=== PATIENT | female | born 1980 | race African-American/Black ===

== ENCOUNTER 2018-01-10 10:53 | Day surgery (SDC) | payer OTHER ==
[2018-01-09 14:03] VITALS: BMI 28.3
[2018-01-10 11:26] LABS: BASO % 0.4 % (0-2.0); EOS % 0.5 % (0-4.5); HEMATOCRIT 34.7 % (32.4-45.2); LYMPH % 33.8 % (8-40); MCHC 31.7 g/dl (32.0-36.0); MEAN CELL VOLUME 58.8 fl (80-96); MEAN PLT VOLUME 9.2 fl (7.5-11.1); MONO % 5.4 % (3.8-10.2); NEUT % 59.9 % (42.8-82.8); PLATELET COUNT 304 K/MM3 (134-434); RBC 5.91 M/mm3 (3.60-5.2); RDW 15.9 % (11.6-15.6); WHITE BLOOD COUNT 8.7 K/mm3 (4.0-10.0)
[2018-01-10 11:28] LABS: MCH 18.7 pg (25.7-33.7)
--- NOTE | 2018-01-10 11:48 | HP ---
Admitting History and Physical - Admission Chief Complaint: Missed History of Present Illness: 37 y/o female who was seen in my office for an ultrasound and was diagnosed with a missed . The patient was counseled on her options and elected to undergo a suction D&C procedure. No complaints today. History Source: Patient, Medical Record - Past Medical History Cardiovascular: No: HTN ...LMP: 11/05/17 ...: Yes (no heart rate, with missed ) Infectious Disease: No: AIDS, HIV, MRSA Psych: No: Anxiety, Bipolar, Depression - Past Surgical History Past Surgical History: Yes: None - Smoking History Smoking history: Never smoked Have you smoked in the past 12 months: No Aproximately how many cigarettes per day: 2 - Alcohol/Substance Use Hx Alcohol Use: Yes History of Substance Use: reports: None - Social History ADL: Independent History of Recent Travel: No Home Medications - Allergies Allergies/Adverse Reactions: Allergies Allergy/AdvReac Type Severity Reaction Status Date / Time No Known Allergies Allergy Verified 01/09/18 13:59 - Home Medications Home Medications: Ambulatory Orders Vit 108/Iron/Folic AC [ One Tablet] 1 each PO DAILY 01/09/18 Review of Systems - Review of Systems Constitutional: reports: No Symptoms Eyes: reports: No Symptoms HENT: reports: No Symptoms Neck: reports: No Symptoms Cardiovascular: reports: No Symptoms Respiratory: reports: No Symptoms Gastrointestinal: reports: No Symptoms Genitourinary: reports: No Symptoms Breasts: reports: No Symptoms Reported Musculoskeletal: reports: No Symptoms Integumentary: reports: No Symptoms Neurological: reports: No Symptoms Endocrine: reports: No Symptoms Hematology/Lymphatic: reports: No Symptoms Psychiatric: reports: No Symptoms Physical Examination Constitutional: Yes: Well Nourished, No Distress Eyes: Yes: Conjunctiva Clear HENT: Yes: Atraumatic Neck: Yes: WNL Cardiovascular: Yes: WNL Respiratory: Yes: Regular Gastrointestinal: Yes: WNL Extremities: Yes: WNL Edema: No Neurological: Yes: Alert, Oriented Psychiatric: Yes: Alert, Oriented Labs: CBC, BMP 01/10/18 11:05 Problem List - Problems (1) Missed Code(s): O02.1 - MISSED (2) Missed with demise before 20 completed weeks of gestation Code(s): O02.1 - MISSED Assessment/Plan missed at approx 6 weeks measured gestation for suction D&C NPO
[2018-01-10] MEDS ORDERED: ACETAMINOPHEN 325 MG TABLET (FP) PO PRN (11:52)
[2018-01-10] MEDS ORDERED: IBUPROFEN 800 MG/8 ML IJ IVPB PRN (11:52)
[2018-01-10] MEDS ORDERED: LACTATED RINGERS SOLUTION 1,000 ML IV SCH ×2 (12:00→14:15)
[2018-01-10 12:01] LABS: ANISOCYTOSIS 2+; PLATELET ESTIMATE ADEQUATE; TARGET CELLS 1+
[2018-01-10 12:11] LABS: ALBUMIN 3.6 g/dl (3.4-5.0); ALK PHOS 62 U/L (45-117); ANION GAP 11 MMOL/L (8-16); BILIRUBIN,TOTAL 0.5 mg/dL (0.2-1); BLOOD UREA NITROGEN 8 mg/dL (7-18); CALCIUM 8.6 mg/dL (8.5-10.1); CHLORIDE 107 mmol/L (98-107); CO2 23 mmol/L (21-32); CREATININE 0.5 mg/dL (0.55-1.3); GLUCOSE,RANDOM 94 mg/dL (74-106); SGOT/AST 19 U/L (15-37); SGPT/ALT 32 U/L (13-61); SODIUM 141 mmol/L (136-145); TOT PROT 6.9 g/dl (6.4-8.2)
[2018-01-10] MEDS ORDERED: PROPOFOL 20 ML ONE (12:49)
[2018-01-10] MEDS ORDERED: MIDAZOLAM HCL 2 MG/2 ML SINGLE DOSE VIAL ONE (12:49)
[2018-01-10] MEDS ORDERED: KETOROLAC TROMETHAMINE 30 MG/1 ML VIAL ONE (13:09)
[2018-01-10] MEDS ORDERED: PROMETHAZINE HCL 25 MG/1 ML VIAL IVPUSH PRN (14:03)
[2018-01-10] MEDS ORDERED: ONDANSETRON 4 MG/2 ML VIAL IVPUSH PRN (14:03)
[2018-01-10 14:26] VITALS: TEMP 97.8
--- NOTE | 2018-01-10 14:26 | OP ---
Operative Note - Note: Operative Date: 01/10/18 ([id number]) Pre-Operative Diagnosis: missed at 6 weeks Operation: suction D&C Post-Operative Diagnosis: Same as Pre-op Surgeon: Carleen Sunshine Anesthesiologist/ELECTRIC TRAIN DRIVER: Eddi Bird Anesthesia: MAC Specimens Removed: products of conception Estimated Blood Loss (mls): 10 Operative Report Dictated: Yes
[2018-01-10 18:04] VITALS: BP 116/74; PULSE 74
--- NOTE | 2018-01-10 19:15 | OP ---
DATE OF OPERATION: 01/10/2018 PREOPERATIVE DIAGNOSIS: Missed at approximately 6 weeks' gestation. POSTOPERATIVE DIAGNOSIS: Missed at approximately 6 weeks' gestation. PROCEDURE: Suction dilatation and curettage. SURGEON: Carleen Sunshine DO ANESTHESIA: MAC by Tylor Bird MD. ESTIMATED BLOOD LOSS: 10 mL SPECIMENS REMOVED: Products of conception. COUNTS: Sponge and instrument count correct. COMPLICATIONS: None. DISPOSITION: Stable to PACU. BRIEF HISTORY AND PROCEDURE: Patient is a 37-year-old, G9, P1 female who had been seen in the office with a positive test and found to have no heart rate on ultrasound on 2 separate occasions. The patient was diagnosed with a missed at this time. She was given her options and elected to undergo a suction D&C procedure. Consents for this procedure were signed on admission on January 10, 2018. She was then taken back to the operating room, placed in the dorsal lithotomy position, given MAC anesthesia. At this time, a hard timeout was performed. A speculum was placed inside the vagina. The anterior lip of the cervix was grasped with a tenaculum, and cervix was dilated to accommodate a size 7 suction curette which was advanced to the fundus. Several passes were completed with the suction curette to remove the tissue. One pass in all 4 cosby of the uterus with a sharp curette was completed until adequate uterine cry was noted, and 1 final pass of the suction curette was completed. All instruments were removed from the vagina. Specimen was sent fresh to pathology for permanent evaluation and chromosomal analysis. The patient tolerated the procedure well, recovering in stable condition in the PACU at the time of this dictation. CARLEEN SUNSHINE DO /[id number]
--- NOTE | 2018-01-12 15:21 | PATH ---
Surgical Pathology Report Patient Name: NEHA SAENZ Med. Rec. #: [id number] /Age/Gender: 1980 (Age: 37) / F Account: [id number] Location: [facility] SURGICAL Taken: 01/10/2018 Received: 01/10/2018 Reported: 01/12/2018 Physicians: Carleen Sunshine M.D. Specimen(s) Received PRODUCTS OF CONCEPTION Clinical History Missed Final Diagnosis PRODUCTS OF CONCEPTION: CHORIONIC VILLI AND DECIDUAL TISSUE PRESENT, CONSISTENT WITH PRODUCTS OF CONCEPTION. Electronically Signed Charanjit Sanchez M.D. Gross Description Received fresh labeled "products of conception," is a 5.0 x 4.3 x 0.5 cm aggregate of montejo-pink soft tissue fragments. Possible villous tissue is identified. No somatic tissue is identified. A pharmacy services representative portion is placed in RPMI solution and sent for genetic testing. The remainder of the specimen is entirely submitted in 4 cassettes. DL/01/10/2018 saudi/01/10/2018
== END 2018-01-10 16:30 | disposition home or self-care (01) ==
LOC: JOR 10:53 → JASU-SURG 10:53
PROVIDERS: ATTEND Obstetrics & Gynecology
PROC: 10D17ZZ Extraction of Products of Conception, Retained, Via Natural or Artificial Opening (ICD-10-PCS; principal; 2018-01-10 12:00)
DX: O02.1 Missed abortion (principal)
CPT/HCPCS: 36415; 80053; 84702; 85025; 86850; 86900; 86901; 88305-TC; 94760

== ENCOUNTER 2018-06-30 22:15 | Emergency (ER) | payer OTHER ==
[2018-06-30 22:27] VITALS: BP 125/73; PULSE 101; TEMP 98.3; BMI 27.4
--- NOTE | 2018-06-30 22:44 | PDOC ---
History of Present Illness - General Chief Complaint: Chest Pain Stated Complaint: CHEST PAIN/ Time Seen by Provider: 06/30/18 22:35 History Source: Patient - History of Present Illness Presenting Symptoms: Chest Pain Past History - Past Medical History Allergies/Adverse Reactions: Allergies Allergy/AdvReac Type Severity Reaction Status Date / Time No Known Allergies Allergy Verified 06/30/18 22:27 Home Medications: Ambulatory Orders Vit 108/Iron/Folic AC [ One Tablet] 1 each PO DAILY 01/09/18 Anemia: Yes Asthma: No Cancer: No Cardiac Disorders: No CVA: No COPD: No CHF: No Dementia: No Diabetes: No GI Disorders: No Disorders: No HTN: No Hypercholesterolemia: No Liver Disease: No Seizures: No Thyroid Disease: No - Surgical History Abdominal Surgery: No Appendectomy: Yes Cholecystectomy: No Orthopedic Surgery: No - Reproductive History (#): 7 Para: 1 Cervical CA: No Dysfunctional Uterine Bleeding: No Ectopic : No Endometrial CA: No Polycystic Ovaries: No Spontaneous : 5 - Immunization History Immunization Up to Date: Yes - Suicide/Smoking/Psychosocial Hx Smoking Status: Yes Smoking History: Never smoked Have you smoked in the past 12 months: No Number of Cigarettes Smoked Daily: 2 Information on smoking cessation initiated: No Hx Alcohol Use: No Drug/Substance Use Hx: No Substance Use Type: Alcohol Hx Substance Use Treatment: No Cardiac Specific PMH - Complaint Specific PMHX Pacemaker: No Review of Systems - Review of Systems Constitutional: No: Chills, Fever Respiratory: No: Cough, Shortness of Breath Cardiac (ROS): Yes: Chest Pain. No: Lightheadedness, Palpitations, Syncope ABD/GI: No: Nausea, Vomiting, Abdominal cramping : No: Burning, Dysuria, Discharge, Flank Pain, Hematuria *Physical Exam - Vital Signs Last Vital Signs Temp Pulse Resp BP Pulse Ox 98.3 F 101 H 16 125/73 100 06/30/18 22:25 06/30/18 22:25 06/30/18 22:25 06/30/18 22:25 06/30/18 22:25 - Physical Exam Comments: 07/01/18 00:16 Appears anxious General Appearance: Yes: Appropriately Dressed HEENT: positive: Normal Voice, Thrush Respiratory/Chest: positive: Lungs Clear, Normal Breath Sounds. negative: Respiratory Distress Cardiovascular: positive: Regular Rate, S1, S2 Gastrointestinal/Abdominal: positive: Soft. negative: Tender Musculoskeletal: negative: CVA Tenderness Integumentary: positive: Dry, Warm Neurologic: positive: Fully Oriented, Alert, Normal Mood/Affect Moderate Sedation - Procedure Monitoring Vital Signs: Procedure Monitoring Vital Signs Temperature 98.3 F 06/30/18 22:25 Pulse Rate 101 H 06/30/18 22:25 Respiratory Rate 16 06/30/18 22:25 Blood Pressure 125/73 06/30/18 22:25 O2 Sat by Pulse Oximetry (%) 100 06/30/18 22:25 ED Treatment Course - LABORATORY CBC & Chemistry Diagram: 06/30/18 23:19 06/30/18 23:19 - ADDITIONAL ORDERS Additional order review: Laboratory Results 06/30/18 06/30/18 06/30/18 23:20 23:19 23:19 D-Dimer 1035 H Sodium 135 L Potassium 3.6 Chloride 105 Carbon Dioxide 23 Anion Gap 6 L BUN 7 Creatinine 0.6 Creat Clearance w eGFR 111.29 Random Glucose 101 Calcium 9.0 Total Bilirubin 0.4 AST 18 ALT 22 Alkaline Phosphatase 67 Creatine Kinase 230 H Creatine Kinase Index 0.4 CK-MB (CK-2) 1.1 Troponin I < 0.02 Total Protein 7.7 Albumin 3.9 Urine Color Yellow Urine Appearance Clear Urine pH 5.5 Ur Specific Beaver 1.003 L Urine Protein Negative Urine Glucose (UA) Negative Urine Ketones Negative Urine Blood Negative Urine Nitrite Negative Urine Bilirubin Negative Urine Urobilinogen 0.2 Ur Leukocyte Esterase Negative 06/30/18 23:19 RBC 6.09 H MCV 59.3 L MCHC 32.8 RDW 15.5 MPV 9.2 Neutrophils % 62.2 Lymphocytes % 28.6 Monocytes % 7.6 Eosinophils % 0.7 Basophils % 0.9 - RADIOLOGY Radiology Studies Ordered: Category Date Time Status CHEST CTA [CT] Stat CT Scan 07/01/18 00:03 Taken Medical Decision Making - Medical Decision Making 06/30/18 22:42 38 yo F, , (spon AB x 8), ~ 5 weeks and here w/ CP. Pt states she has had non-radiating left-sided chest pains on and off 1 month, unable to describe, but seems to worsen with movement or if she talks too loud per patient. No hemoptysis, shortness of breath, palpitations, leg pain, swelling, diaphoresis, nausea, vomiting, fever or chills. Admits that she has been in to see her doctor multiple times for CP and at one point had an US of L breast done that was normal per pt. 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 Denies abd pain, vag bleed or dysuria at this time. See exam CP in Given duration of sxs, doubt PE and unlikely ACS or dissection S/p multiples neg w/u by PMD Tachy to 101 here and appears anxious, chest/lungs clear otherwise -Will review EKG done at triage -will discuss further w/u with ED attg 06/30/18 22:58 Per ED attending, will get labs including d-dimer. EKG reviewed w/ and shows NSR @100 BPM 07/01/18 00:08 Labs remarkable for d-dimer >1000. As per discussion with Dr. Claire, CTA offered to pt after lengthy conversation with patient regarding the risk of radiation to the fetus. I explained to mother that though the risk is considered low, that some risk is present such as developmental abnormalities and/or demise. I informed pt that though there is some risk, that we weigh this against the 20-30% risk of maternal mortality with untreated PE. Questions asked and answered and patient consents to having CTA done 07/01/18 01:45 CTA neg for PE or other acute ab/nl. Pt stable for discharge to continue f/u with her PMD and OB *DC/Admit/Observation/Transfer Diagnosis at time of Disposition: Chest pain Qualifiers: Chest pain type: unspecified Qualified Code(s): R07.9 - Chest pain, unspecified - Discharge Dispostion Disposition: HOME Condition at time of disposition: Good - Referrals Referrals: Zina Shi MD [Primary Care Provider] - - Patient Instructions Printed Discharge Instructions: DI for Chest Pain Additional Instructions: The cause of your chest pain is unclear as your EKG was normal and CTA of your lungs showed no clots or other lung abnormality Please continue to f/u with your PMD and OB - Post Discharge Activity
[2018-06-30 23:25] LABS: BASO % 0.9 % (0-2.0); EOS % 0.7 % (0-4.5); HEMATOCRIT 36.1 % (32.4-45.2); HEMOGLOBIN 11.8 GM/dL (10.7-15.3); LYMPH % 28.6 % (8-40); MCHC 32.8 g/dl (32.0-36.0); MEAN CELL VOLUME 59.3 fl (80-96); MEAN PLT VOLUME 9.2 fl (7.5-11.1); MONO % 7.6 % (3.8-10.2); NEUT % 62.2 % (42.8-82.8); PLATELET COUNT 278 K/MM3 (134-434); RBC 6.09 M/mm3 (3.60-5.2); RDW 15.5 % (11.6-15.6)
[2018-06-30 23:26] LABS: MCH 19.5 pg (25.7-33.7)
[2018-06-30 23:27] LABS: PH,URINE 5.5 (5.0-8.0); URINE APPEARANCE CLEAR; URINE BILIRUBIN NEGATIVE (<2.0 mg/dL); URINE COLOR YELLOW; URINE GLUCOSE (UA) NEGATIVE (NEGATIVE); URINE KETONE NEGATIVE (NEGATIVE); URINE LEUK ESTERASE NEGATIVE (NEGATIVE); URINE NITRITE NEGATIVE (NEGATIVE); URINE PROTEIN NEGATIVE (NEGATIVE); URINE UROBILINOGEN 0.2 mg/dL (0.2-1.0)
[2018-06-30 23:42] LABS: ANISOCYTOSIS 3+; MACROCYTOSIS 1+
[2018-06-30 23:43] LABS: PLATELET ESTIMATE ADEQUATE
[2018-06-30 23:51] LABS: ALBUMIN 3.9 g/dl (3.4-5.0); ALK PHOS 67 U/L (45-117); ANION GAP 6 MMOL/L (8-16); BILIRUBIN,TOTAL 0.4 mg/dL (0.2-1); BLOOD UREA NITROGEN 7 mg/dL (7-18); CHLORIDE 105 mmol/L (98-107); CO2 23 mmol/L (21-32); CREATININE 0.6 mg/dL (0.55-1.3); GLUCOSE,RANDOM 101 mg/dL (74-106); POTASSIUM 3.6 mmol/L (3.5-5.1); SGOT/AST 18 U/L (15-37); SGPT/ALT 22 U/L (13-61); SODIUM 135 mmol/L (136-145); TOT PROT 7.7 g/dl (6.4-8.2)
--- NOTE | 2018-07-03 22:03 | EKG ---
Test Reason : Blood Pressure : / mmHG Vent. Rate : 100 BPM Atrial Rate : 100 BPM P-R Int : 148 ms QRS Dur : 080 ms QT Int : 348 ms P-R-T Axes : 074 058 051 degrees QTc Int : 448 ms NORMAL SINUS RHYTHM NORMAL ECG NO PREVIOUS ECGS AVAILABLE Confirmed by MD KJ, SCARLETT ([id number]) on 07/03/2018 10:03:05 PM Referred By: Confirmed By:SCARLETT UNDERWOOD MD
== END 2018-07-01 01:59 | disposition home or self-care (01) ==
LOC: JER 22:15
DX: O26.891 Other specified pregnancy related conditions, first trimester (principal); R07.9 Chest pain, unspecified; Z3A.01 Less than 8 weeks gestation of pregnancy
CPT/HCPCS: 36415; 71275-TC; 80053; 81003; 82550; 82553; 84484; 85025; 85379; 93005; 93010; 99281-25

== ENCOUNTER 2018-11-08 15:48 | Emergency (ER) | payer SELFPAY ==
[2018-11-08 15:54] VITALS: BMI 30.5
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
[2018-11-08 18:35] VITALS: BP 113/69; PULSE 79; TEMP 98.1
== END 2018-11-08 20:45 | disposition home or self-care (01) ==
LOC: JER 15:48
CPT/HCPCS: 76801-TC; 99281-25

== ENCOUNTER 2019-02-13 00:10 | Inpatient (IN) | payer OTHER ==
[2019-02-13 01:05] LABS: BASO % 0.3 % (0-2.0); EOS % 0.3 % (0-4.5); HEMATOCRIT 32.8 % (32.4-45.2); HEMOGLOBIN 10.3 GM/dL (10.7-15.3); LYMPH % 19.4 % (8-40); MCHC 31.5 g/dl (32.0-36.0); MEAN CELL VOLUME 61.9 fl (80-96); MEAN PLT VOLUME 9.1 fl (7.5-11.1); MONO % 9.3 % (3.8-10.2); NEUT % 70.7 % (42.8-82.8); PLATELET COUNT 214 K/MM3 (134-434); RBC 5.29 M/mm3 (3.60-5.2); RDW 17.1 % (11.6-15.6)
[2019-02-13 01:18] LABS: MCH 19.5 pg (25.7-33.7)
[2019-02-13 01:22] VITALS: BMI 31.7
[2019-02-13 01:22] LABS: BLOOD UREA NITROGEN 6.7 mg/dL (7-18); CALCIUM 8.4 mg/dL (8.5-10.1); CREATININE 0.7 mg/dL (0.55-1.3)
[2019-02-13 01:26] LABS: INR 0.92 (0.83-1.09); PROTHROMBIN TIME (PATIENT) 10.9 SEC (9.7-13.0)
[2019-02-13] MEDS ORDERED: PROMETHAZINE HCL 25 MG/1 ML VIAL ONE (01:26)
[2019-02-13] MEDS ORDERED: BUTORPHANOL TARTRATE 1 MG/ML VIAL ONE ×2 (01:26)
[2019-02-13 01:28] LABS: ACTIVATED PTT 28.5 SECONDS (25.2-36.5)
[2019-02-13] MEDS ORDERED: PROMETHAZINE HCL 25 MG/1 ML VIAL IVPB ONE (01:30)
[2019-02-13] MEDS ORDERED: DEXTROSE 5%-LACTATED RINGERS 1,000 ML IV SCH (01:30)
[2019-02-13] MEDS ORDERED: BUTORPHANOL TARTRATE 1 MG/ML VIAL IVPB ONE ×2 (01:30)
[2019-02-13] MEDS ORDERED: AMPICILLIN SODIUM 2 GM VIAL ONE (01:36)
[2019-02-13] MEDS ORDERED: AMPICILLIN - 2 GM in SODIUM CHLORIDE 100 ML IVPB STA (02:08)
[2019-02-13] MEDS ORDERED: ELECTROLYTE-148 SOLN 500 ML IV ONE (03:00)
[2019-02-13] MEDS ORDERED: FENTANYL/BUPIVACAINE/NS/PF - PCEA - 50 ML DISP.SYRIN EP ONE ×2 (03:25→08:54)
[2019-02-13] MEDS ORDERED: LIDO 2%/EPI 1:200000 PRESRVFRE (20 ML SDVIAL) ONE (03:40)
[2019-02-13] MEDS ORDERED: ELECTROLYTE-148 SOLN 1,000 ML IV SCH ×2 (04:00→06:45)
[2019-02-13] MEDS: FENTANYL/BUPIVACAINE/NS/PF - PCEA - 50 ML DISP.SYRIN EP SCH ×2 (05:05→09:01)
[2019-02-13] MEDS ORDERED: NALOXONE HCL 0.4 MG/ML VIAL IVPUSH PRN (05:16)
[2019-02-13 05:44] LABS: PLATELET ESTIMATE ADEQUATE
[2019-02-13] MEDS: AMPICILLIN - 1 GM in SODIUM CHLORIDE 100 ML IVPB SCH ×2 (06:05→11:58)
[2019-02-13] MEDS ORDERED: AMPICILLIN SODIUM 1 GM VIAL ONE (06:08)
--- NOTE | 2019-02-13 06:50 | HP ---
Past Medical History - Primary Care Physician PCP:: Umm Carver - Admission Chief Complaint: Labor History of Present Illness: 39 go G 11P1 EDC 02/16/19 EGA 39.5 week admitted in labor +GBS no rom no bleeding no pain AMA Spont AB x 9 History Source: Patient Limitations to Obtaining History: No Limitations - Past Medical History ...: 11 ...Para: 1 ...Term: 1 ...: 0 ...Spon : 9 ...EDC by Sono: 02/15/19 - Past Surgical History Past Surgical History: Yes: Appendectomy Hx Myomectomy: No Hx Transabdominal Cerclage: No Additional Surgical History: DC. Breast implants - Smoking History Smoking history: Never smoked Have you smoked in the past 12 months: No Aproximately how many cigarettes per day: 2 - Alcohol/Substance Use Hx Alcohol Use: No History of Substance Use: reports: None - Social History ADL: Independent History of Recent Travel: No Home Medications - Allergies Allergies/Adverse Reactions: Allergies Allergy/AdvReac Type Severity Reaction Status Date / Time No Known Allergies Allergy Verified 06/30/18 22:27 - Home Medications Home Medications: Ambulatory Orders Mv-Mn/Iron/FA/Herbal/Digestive [ One Tablet] 1 each PO DAILY 01/09/18 Review of Systems - Review of Systems Constitutional: reports: No Symptoms Eyes: reports: No Symptoms HENT: reports: No Symptoms Neck: reports: No Symptoms Cardiovascular: reports: No Symptoms Respiratory: reports: No Symptoms Gastrointestinal: reports: Abdominal Pain Genitourinary: reports: No Symptoms Breasts: reports: No Symptoms Reported Musculoskeletal: reports: No Symptoms Integumentary: reports: No Symptoms Neurological: reports: No Symptoms Endocrine: reports: No Symptoms Hematology/Lymphatic: reports: No Symptoms Psychiatric: reports: No Symptoms Physical Exam - Maternity Vital Signs: Vital Signs Temperature 98.2 F 02/13/19 06:00 Pulse Rate 89 02/13/19 06:30 Respiratory Rate 20 02/13/19 06:30 Blood Pressure 111/62 02/13/19 06:30 O2 Sat by Pulse Oximetry (%) 100 02/13/19 06:30 Constitutional: Yes: Well Nourished, No Distress - Abdominal Exam/OB Number of Fetuses: Single Presentation: Vertex Contractions: Yes Monitor Mode: External Heart Rate Location: [facility] Category: I Decelerations: None - Vaginal Exam/OB Dilatation (cm): 3 Effacement (%): 70 Amniotic Membrane Status: Intact Presentation: Vertex/Position Station: -1 - Physical Exam Musculoskeletal: Yes: WNL Extremities: Yes: WNL - Labs Lab Results: CBC, BMP 02/13/19 00:40 02/13/19 00:40 Hemorrhage Risk Assessment - Risk Factors Risk Score: 0 Risk Level: Low Risk Problem List - Problems (1) Labor established Code(s): UDB0272 - (2) 39 weeks gestation of Code(s): Z3A.39 - 39 WEEKS GESTATION OF Assessment/Plan IUP at 39.5 week GBS positive AMA Plan Admit to LD
--- NOTE | 2019-02-13 07:03 | PN ---
Ante-Partal Exam - Subjective Subjective: Pt sp epidural and bradycardia x 6 min after epidural Pt sp rom @ 5 am Vital Signs: Vital Signs Temperature 98.2 F 02/13/19 06:00 Pulse Rate 93 H 02/13/19 06:45 Respiratory Rate 20 02/13/19 06:45 Blood Pressure 109/59 L 02/13/19 06:45 O2 Sat by Pulse Oximetry (%) 100 02/13/19 06:45 Bleeding: No Headache: No Visual changes: No Right upper quadrant pain: No - Contractions Contractions: Yes Regularity: Regular Intensity: Mild/Mod Monitor Mode: External - Exam during Labor Variability: Minimal Heart Rate Location: [facility] Category: I Monitor Decelerations: None Exam: Vaginal (internal lead was placed by laborist after bradycardia) Dilatation (cm): 6 Effacement (%): 80 Amniotic Membrane Status: Ruptured Amniotic Fluid: Clear Presentation: Vertex Station: -1 - Intrapartum Hemorrhage Risk Medium Risk Factors: None Risk Score: 0 Risk Level: Low Risk
--- NOTE | 2019-02-13 07:41 | PN ---
Ante-Partal Exam - Subjective Subjective: Pt feeling pressure Vital Signs: Vital Signs Temperature 98.1 F 02/13/19 07:00 Pulse Rate 93 H 02/13/19 06:45 Respiratory Rate 20 02/13/19 06:45 Blood Pressure 109/59 L 02/13/19 06:45 O2 Sat by Pulse Oximetry (%) 100 02/13/19 06:45 Bleeding: Yes (bloody show) Headache: No Visual changes: No Right upper quadrant pain: No - Contractions Contractions: Yes Regularity: Regular Intensity: Mild/Mod Monitor Mode: External - Exam during Labor Heart Rate: 150 Variability: Moderate Category: I Dilatation (cm): 7-8 Amniotic Membrane Status: Ruptured Presentation: Vertex Station: -1 - Intrapartum Hemorrhage Risk High Risk Factors: None Risk Score: 0 Risk Level: Low Risk - Assessment/Plan Assessment/Plan: active labor Cat 1 7-8 cm GBS positive plan continue labor management
[2019-02-13] MEDS ORDERED: BUPIVACAINE HCL/PF 2.5 MG/ML - 30 ML VIAL IJ ONE (08:14)
[2019-02-13] MEDS ORDERED: LIDOCAINE HCL 1% PRESERVATIVE FREE - 30ML VIAL ONE (08:15)
[2019-02-13] MEDS ORDERED: OXYTOCIN 20 UNITS in 0.9% NS 20 UNIT/1,000 ML INFUS.BAG IV ONE (09:53)
--- NOTE | 2019-02-13 09:57 | PN ---
Delivery - Delivery Vaginal Delivery: No Problems (OP position) Type of Anesthesia: Epidural Episiotomy/Laceration: None EBL (cc): 250 Delivery, Single - [place] Feeding Plan Initial Plan: Elected not to breastfeed exclusively throughout hospitalization
[2019-02-13] MEDS ORDERED: WITCH HAZEL 50% (TUCKS) 40 PAD/JAR PAD TP PRN (10:02)
[2019-02-13] MEDS ORDERED: BENZOCAINE 28 GM HEMORRHOIDAL OINTMENT PR PRN (10:02)
[2019-02-13] MEDS ORDERED: BISACODYL 10 MG SUPP.RECT PR PRN (10:02)
[2019-02-13] MEDS ORDERED: METHYLERGONOVINE MALEATE 0.2 MG/1 ML AMP IM PRN (10:02)
[2019-02-13] MEDS ORDERED: BENZOCAINE 20% 57 GM BOTTLE TP PRN (10:02)
[2019-02-13] MEDS ORDERED: OXYTOCIN 20 UNITS in 0.9% NS 20 UNIT/1,000 ML INFUS.BAG IV SCH (10:15)
[2019-02-13] MEDS: IBUPROFEN 600 MG TABLET (FP) PO PRN ×2 (12:23→19:27)
[2019-02-13] MEDS: ACETAMINOPHEN 325 MG TABLET (FP) PO PRN ×2 (12:23→19:27)
[2019-02-14] MEDS: ACETAMINOPHEN 325 MG TABLET (FP) PO PRN ×4 (04:06→22:37)
[2019-02-14] MEDS: IBUPROFEN 600 MG TABLET (FP) PO PRN ×4 (04:07→22:36)
--- NOTE | 2019-02-14 06:15 | PN ---
Post Note - Post Date of Delivery: 02/13/19 Post Day: 1 Vital Signs: Vital Signs - 24 hr 02/13/19 02/13/19 02/13/19 06:30 06:45 07:00 Temperature 98.1 F Pulse Rate 89 93 H 96 H Respiratory 20 20 20 Rate Blood Pressure 111/62 109/59 L 113/60 O2 Sat by Pulse 100 100 Oximetry (%) 02/13/19 02/13/19 02/13/19 07:15 07:30 07:45 Temperature Pulse Rate 87 88 91 H Respiratory 20 20 20 Rate Blood Pressure 116/70 119/70 114/73 O2 Sat by Pulse 100 100 100 Oximetry (%) 02/13/19 02/13/19 02/13/19 08:00 08:15 08:30 Temperature 98.2 F Pulse Rate 92 H 95 H 97 H Respiratory 20 20 20 Rate Blood Pressure 126/72 123/76 113/67 O2 Sat by Pulse 100 97 100 Oximetry (%) 02/13/19 02/13/19 02/13/19 08:45 09:00 09:01 Temperature Pulse Rate 104 H 100 H 20 L Respiratory 20 20 Rate Blood Pressure 127/65 127/65 O2 Sat by Pulse 100 100 Oximetry (%) 02/13/19 02/13/19 02/13/19 09:15 09:30 09:45 Temperature Pulse Rate 114 H 115 H 118 H Respiratory 22 H 22 H 22 H Rate Blood Pressure 126/75 133/74 125/68 O2 Sat by Pulse 100 Oximetry (%) 02/13/19 02/13/19 02/13/19 10:00 10:15 10:30 Temperature 97.3 F L Pulse Rate 102 H 99 H 89 Respiratory 20 20 20 Rate Blood Pressure 121/73 110/87 125/74 O2 Sat by Pulse 100 100 100 Oximetry (%) 02/13/19 02/13/19 02/13/19 10:45 11:00 12:00 Temperature 98.1 F Pulse Rate 91 H 86 81 Respiratory 20 20 20 Rate Blood Pressure 113/57 L 134/84 127/73 O2 Sat by Pulse 100 Oximetry (%) 02/13/19 02/13/19 02/13/19 15:31 20:39 21:12 Temperature 98.3 F 98 F Pulse Rate 101 H 85 Respiratory 18 18 16 Rate Blood Pressure 109/63 105/51 L O2 Sat by Pulse 100 Oximetry (%) 02/14/19 02/14/19 01:32 05:31 Temperature 98 F 98.3 F Pulse Rate 78 83 Respiratory 18 16 Rate Blood Pressure 111/60 115/65 O2 Sat by Pulse Oximetry (%) Labs: Laboratory Results - last 24 hr 02/13/19 02/13/19 02/13/19 00:40 09:55 09:55 Cord Blood pH 7.28 7.25 Cord Blood PCO2 49.6 41.9 Cord Blood PO2 < 49 H < 49 H Cord Blood HCO3 22.4 No Result Required. Cord Base Excess -4.9 L No Result Required. RPR Titer Nonreactive - Subjective Subjective: No Complaints - Objective Afebrile: Yes Breast: Not engorged Abdomen: Non-tender Uterus: Fundus firm Vagina: Scant lochia Extremities: Non-tender - Assessment/Plan (1) Labor established Assessment: S/P Normal Plan: Routine Care
--- NOTE | 2019-02-14 06:15 | PROC ---
Obstetrical Vaccum Device - Doc. Following Use of Vaccum Device Indications for use: Bradycardia Risks and Benefits Explained: Yes Consent on Chart: Yes Station: 2 Position: OP Caput: No Proper placement of cup confirmed: Yes Number of pulls: 1 Number of pop-offs: 0 Reduction of pressure between contractions: Yes Appearance of head on delivery: Normal Metal Stud Framer present during vacuum extraction: No Metal Stud Framer & nursery staff notified of vacuum extraction: Yes
[2019-02-14 08:41] LABS: BASO % 0.4 % (0-2.0); EOS % 0.3 % (0-4.5); HEMATOCRIT 31.3 % (32.4-45.2); HEMOGLOBIN 9.9 GM/dL (10.7-15.3); LYMPH % 16.7 % (8-40); MCHC 31.5 g/dl (32.0-36.0); MEAN CELL VOLUME 61.9 fl (80-96); MEAN PLT VOLUME 9.4 fl (7.5-11.1); MONO % 9.1 % (3.8-10.2); NEUT % 73.5 % (42.8-82.8); PLATELET COUNT 210 K/MM3 (134-434); RBC 5.06 M/mm3 (3.60-5.2); RDW 16.9 % (11.6-15.6); WHITE BLOOD COUNT 17.1 K/mm3 (4.0-10.0)
[2019-02-14 08:46] LABS: MCH 19.5 pg (25.7-33.7)
[2019-02-15] MEDS: IBUPROFEN 600 MG TABLET (FP) PO PRN ×3 (03:07→11:46)
[2019-02-15] MEDS: ACETAMINOPHEN 325 MG TABLET (FP) PO PRN ×4 (03:07→19:04)
[2019-02-15 11:03] LABS: BASO % 0.3 % (0-2.0); EOS % 1.3 % (0-4.5); HEMATOCRIT 33.6 % (32.4-45.2); HEMOGLOBIN 10.4 GM/dL (10.7-15.3); MCHC 30.9 g/dl (32.0-36.0); MEAN CELL VOLUME 62.6 fl (80-96); MEAN PLT VOLUME 8.8 fl (7.5-11.1); MONO % 7.2 % (3.8-10.2); NEUT % 72.2 % (42.8-82.8); PLATELET COUNT 206 K/MM3 (134-434); RBC 5.36 M/mm3 (3.60-5.2); RDW 17.5 % (11.6-15.6)
[2019-02-15 11:12] LABS: MCH 19.3 pg (25.7-33.7)
[2019-02-15] MEDS ORDERED: ACETAMINOPHEN 325 MG TABLET (FP) PO ONE ×2 (12:15)
[2019-02-15] MEDS ORDERED: oxyCODONE HCL 5 MG TABLET PO ONE ×2 (12:15)
[2019-02-15] MEDS ORDERED: ACETAMINOPHEN 325 MG TABLET (FP) PO PRN (18:28)
[2019-02-15] MEDS ORDERED: oxyCODONE HCL 5 MG TABLET PO PRN (18:28)
[2019-02-15] MEDS: oxyCODONE HCL 5 MG TABLET PO PRN (19:03)
--- NOTE | 2019-02-15 20:36 | CONSULT ---
Past Medical History, Laborist - Primary Care Physician PCP:: bony - Admission Chief Complaint: Called to pt. because of c/o LLQ pain. Happenned suddenly few hours ago, responded to Percocet. It is returning now at the level of 5-6. NVD of a second baby on 02.13.2019. Normal bowel function, normal voiding,. VSS. Labs WNL. History of Present Illness: acute llq pain History Source: Patient Limitations to Obtaining History: No Limitations - Past Medical History UPKEEP MECHANIC: Denies/None Cardio/Vascular: Denies/None Pulmonary: Denies/None Gastrointestinal: Denies/None Hepatobiliary: Denies/None Renal/: Denies/None Reproductive: Denies/None ...: 11 ...Para: 1 ...Term: 1 ...: 0 ...Spon : 9 ...EDC by Lee: 02/15/19 Heme/Onc: Denies/None Infectious Disease: Denies/None Psych: Denies/None Musculoskeletal: Denies/None Rheumatology: Denies/None ENT: Denies/None Endocrine: Denies/None Dermatology: Denies/None - Past Surgical History Past Surgical History: Yes: Appendectomy Additional Surgical History: DC. Breast implants - Smoking History Smoking history: Never smoked Have you smoked in the past 12 months: No Aproximately how many cigarettes per day: 2 - Alcohol/Substance Use Hx Alcohol Use: No History of Substance Use: reports: None - Social History ADL: Independent History of Recent Travel: No Physical Exam - Maternity Vital Signs: Vital Signs Temperature 98.4 F 02/15/19 10:00 Pulse Rate 64 02/15/19 10:00 Respiratory Rate 18 02/15/19 10:00 Blood Pressure 112/62 02/15/19 10:00 O2 Sat by Pulse Oximetry (%) 100 02/13/19 20:39 Constitutional: Yes: Well Nourished HENT: Yes: WNL Neck: Yes: WNL - Labs Lab Results: CBC, BMP 02/15/19 10:45 02/13/19 00:40 Problem List - Problems (1) pain Code(s): O90.89 - OTH COMPLICATIONS OF THE PUERPERIUM, NEC; R52 - PAIN, UNSPECIFIED (2) pain Code(s): O90.89 - OTH COMPLICATIONS OF THE PUERPERIUM, NEC; R52 - PAIN, UNSPECIFIED (3) pain Code(s): O90.89 - OTH COMPLICATIONS OF THE PUERPERIUM, NEC; R52 - PAIN, UNSPECIFIED Assessment/Plan Pt complained of severe left lower quadrant pain on the second PP day. She was ok before. Normal bowel and bladder funcyion. VSS PE: Abdomen soft, sl. distended. Uterus well contracted,non-tender. LLQ tenderness, mild guarding and rebound Pelvic WNL, no hematoma, mass, etc.\ P;an: Observe overnight, Percocet PRN, alt. with Ibuprofen. CT of abd./pelvis.
--- NOTE | 2019-02-15 22:06 | PN ---
Progress Note (short form) - Note Progress Note: CT scan is neg. Pt. feels better. Reassured. Problem List - Problems (1) pain Code(s): O90.89 - OTH COMPLICATIONS OF THE PUERPERIUM, NEC; R52 - PAIN, UNSPECIFIED (2) pain Code(s): O90.89 - OTH COMPLICATIONS OF THE PUERPERIUM, NEC; R52 - PAIN, UNSPECIFIED (3) pain Code(s): O90.89 - OTH COMPLICATIONS OF THE PUERPERIUM, NEC; R52 - PAIN, UNSPECIFIED
[2019-02-16] MEDS: oxyCODONE HCL 5 MG TABLET PO PRN (00:18)
[2019-02-16] MEDS: ACETAMINOPHEN 325 MG TABLET (FP) PO PRN (00:19)
--- NOTE | 2019-02-16 07:04 | PN ---
Progress Note (short form) - Note Progress Note: Pt. had a good night. Feels great. Discharge. Problem List - Problems (1) pain Code(s): O90.89 - OTH COMPLICATIONS OF THE PUERPERIUM, NEC; R52 - PAIN, UNSPECIFIED (2) pain Code(s): O90.89 - OTH COMPLICATIONS OF THE PUERPERIUM, NEC; R52 - PAIN, UNSPECIFIED (3) pain Code(s): O90.89 - OTH COMPLICATIONS OF THE PUERPERIUM, NEC; R52 - PAIN, UNSPECIFIED
[2019-02-16 10:32] VITALS: BP 123/76; PULSE 77; TEMP 98.5
--- NOTE | 2019-02-25 21:14 | DS ---
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 Signs: Vital Signs Temperature 98.5 F 02/16/19 10:00 Pulse Rate 77 02/16/19 10:00 Respiratory Rate 20 02/16/19 10:00 Blood Pressure 123/76 02/16/19 10:00 O2 Sat by Pulse Oximetry (%) 100 02/13/19 20:39 Constitutional: Yes: Well Nourished, No Distress Gastrointestinal: Yes: WNL, Soft ....Post : Yes: Uterus firm, Uterus non-tender Breast(s): Yes: WNL Neurological: Yes: WNL, Alert, Oriented Labs: CBC, BMP 02/15/19 10:45 02/13/19 00:40 Delivery - Delivery Vaginal Delivery: No Problems (OP position) Type of Anesthesia: Epidural Episiotomy/Laceration: None EBL (cc): 350 Delivery, Single - Stages of Labor Date 1st Stage Initiatied: 02/12/19 Time 1st Stage Initiated: 21:00 Date 2nd Stage Initiated: 02/13/19 Time 2nd Stage Initiated: 09:15 Date of Delivery: 02/13/19 Time of Delivery: 09:50 Time Placenta Delivered: 09:55 Placenta: Yes: Spontaneous - 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: No Gender: Male Weight: 6 lb 11 oz Position: OP Total Hours ROM (Hrs/Mins): 4/20 - 1 Minute Total Score: 9 5 Minutes Total Score: 10 - [place] Feeding Plan Initial Plan: Elected not to breastfeed exclusively throughout hospitalization Discharge Summary Problems reviewed: Yes Reason For Visit: LABOR INDUCTION Procedures: Principal: Vacuum Delivery Hospital Course: Unremarkable Condition: Stable - Instructions Disposition: HOME - Home Medications Comprehensive Discharge Medication List: Ambulatory Orders Mv-Mn/Iron/FA/Herbal/Digestive [ One Tablet] 1 each PO DAILY 01/09/18 Ibuprofen [Motrin -] 600 mg PO QID #28 tablet 02/13/19
== END 2019-02-16 11:00 | disposition home or self-care (01) | DRG 560 ==
LOC: JLDR 00:10 → J3W 11:30
PROVIDERS: ADMIT Obstetrics & Gynecology; ATTEND Obstetrics & Gynecology
PROC: 10E0XZZ Delivery of Products of Conception, External Approach (ICD-10-PCS; principal; 2019-02-13)
PROC: 10D07Z6 Extraction of Products of Conception, Vacuum, Via Natural or Artificial Opening (ICD-10-PCS; 2019-02-13)
DX: O77.9 Labor and delivery complicated by fetal stress, unspecified (principal); O66.5 Attempted application of vacuum extractor and forceps; O90.89 Other complications of the puerperium, not elsewhere classified; R10.32 Left lower quadrant pain; Z3A.39 39 weeks gestation of pregnancy; Z37.0 Single live birth
CPT/HCPCS: 36415; 36600; 59409; 74176-TC; 80048; 82803; 85025; 85610; 85730; 86593; 86850; 86900; 86901; 87389

== ENCOUNTER 2024-11-05 10:50 | Emergency (ER) | payer OTHER ==
[2024-11-05 11:51] LABS: EPI CELLS >36 /uL (0-25.1); HCG,QUALITATIVE URINE Negative; HYALINE CASTS 3 /uL (0-3.1); URINE APPEARANCE TURBID; URINE BACTERIA 736 /uL (0-1359); URINE BILIRUBIN NEGATIVE (NEGATIVE); URINE COLOR YELLOW; URINE GLUCOSE (UA) NEGATIVE (NEGATIVE); URINE KETONE TRACE (NEGATIVE); URINE LEUK ESTERASE TRACE (NEGATIVE); URINE NITRITE NEGATIVE (NEGATIVE); URINE PROTEIN 1+ (NEGATIVE); URINE RBC 616 /uL (0-23.9); URINE UROBILINOGEN 1.0 mg/dL (0.2-1.0); URINE WBC 80 /uL (0-25.8)
[2024-11-05 13:03] VITALS: BP 133/89; PULSE 78; RESP 20; TEMP 98.3; BMI 32.1
[2024-11-05 14:16] LABS: ABSOLUTE IMMATURE GRANULOCYTES 0.03 x10^3/uL (0.0-0.031); BASOPHILS # 0.04 x10^3/uL (0.01-0.08); EOSINOPHIL % 0.4 % (0.7-5.8); EOSINOPHILS # 0.03 x10^3/uL (0.04-0.36); MCHC 30.2 g/dl (32.2-35.5); MEAN CELL VOLUME 60.4 fl (79.4-94.8); MEAN PLT VOLUME 10.2 fl (9.4-12.3); MONOCYTE # 0.61 x10^3/uL (0.24-0.86); MONOCYTE % 7.5 % (4.7-12.5); RDW 17.6 % (12.2-17.1)
[2024-11-05 14:39] LABS: CO2 27 mmol/L (21-32); GLUCOSE,RANDOM 89 mg/dL (74-106)
[2024-11-05 14:42] LABS: CREATININE 0.8 mg/dL (0.55-1.3); SGOT/AST 25 U/L (15-37); SGPT/ALT 52 U/L (13-61)
[2024-11-05 14:43] LABS: TOT PROT 7.4 g/dl (6.4-8.2)
[2024-11-05 14:44] LABS: ALK PHOS 76 U/L (45-117)
[2024-11-05 16:23] LABS: HCV DIAGNOSTIC IN-HOUSE W/RFLX NON-REACTIVE (NONREACTIVE)
[2024-11-06 13:04] LABS: HIV INTERPRETATION NEGATIVE (NEGATIVE)
== END 2024-11-05 14:56 | disposition home or self-care (01) ==
LOC: JER 10:50
DX: N93.9 Abnormal uterine and vaginal bleeding, unspecified (principal)
CPT/HCPCS: 36415; 76830-TC; 80053; 81003; 84702; 84703; 85025; 86803; 86850; 86900; 86901; 87070; 87086; 87205; 87389; 87491; 87591; 99284-25